=== PATIENT | male | born 1990 | race Caucasian/White ===

== ENCOUNTER 2017-05-16 02:02 | Emergency (ER) | payer OTHER ==
[~2017-05-16] VITALS: Ht 175.3 cm; Wt 91.0 kg
[~2017-05-16 02:02] MED LIST: ABIL5TAB6 PO; LISI-363 PO
[2017-05-16 02:05] VITALS: BP 165/93; PULSE 99; RESP 16; TEMP 98.7; O2SAT 97
[2017-05-16] MEDS ORDERED: ARIP1TAB5 PO (02:19)
[2017-05-16] MEDS ORDERED: LISI-515 PO (02:19)
[2017-05-16 02:25] LABS: AUTOMATED NEUTROPHIL # 4.9 TH/MM3 (1.8-7.7); BASOPHIL % 0.7 % (0.0-2.0); EOSINOPHIL # 0.1 TH/MM3 (0-0.4); HEMATOCRIT 40.2 % (39.0-51.0); HEMO FLAGS DIFF FINAL; LYMPH % 21.5 % (9.0-44.0); LYMPHOCYTE # 1.6 TH/MM3 (1.0-4.8); MEAN CELL VOLUME 88.1 FL (80.0-100.0); MEAN CORPUSCULAR HEMOGLOBIN 30.8 PG (27.0-34.0); MONO % 9.9 % (0.0-8.0); NEUT % 65.9 % (16.0-70.0); PLATELET COUNT 210 TH/MM3 (150-450); RED BLOOD COUNT 4.56 MIL/MM3 (4.50-5.90); RED CELL DISTRIBUTION WIDTH 13.3 % (11.6-17.2); WHITE BLOOD COUNT 7.4 TH/MM3 (4.0-11.0)
[2017-05-16 02:42] LABS: ALT (GPT) 42 U/L (12-78); ANION GAP 9 MEQ/L (5-15); AST (GOT) 28 U/L (15-37); BICARBONATE 29.4 MEQ/L (21.0-32.0); BLOOD UREA NITROGEN 12 MG/DL (7-18); CHLORIDE 102 MEQ/L (98-107); GLOMERULAR FILTRATION RATE 102 ML/MIN (>89); SODIUM (NA) 140 MEQ/L (136-145)
[2017-05-16 02:43] LABS: BLOOD, URINE NEG (NEG); COMMENT (UR) CULT NOT INDICATED; CULTURE IF INDICATED CULT NOT INDICATED; GLUCOSE,URINE NEG (NEG); KETONE, URINE NEG (NEG); MUCUS URINE FEW /lpf (OCC); NITRITE,URINE NEG (NEG); PH, URINE 5.5 (5.0-8.5); URINE COLOR YELLOW (YELLW/STRAW)
[2017-05-16 02:44] LABS: ACETAMINOPHEN LESS THAN 2.0 MCG/ML (10.0-30.0); ALKALINE PHOSPHATASE 78 U/L (45-117); TOTAL BILIRUBIN ADULT 0.6 MG/DL (0.2-1.0)
--- NOTE | 2017-05-16 02:59 | PD ---
HPI Chief Complaint: Psychiatric Symptoms Time Seen by Provider: 02:15 Travel History International Travel<30 days: No Contact w/Intl Traveler<30days: No Traveled to known affect area: No History of Present Illness HPI Patient is 27-year-old male brought into the emergency Department under Muse act due to suicidal ideations. Patient states that he is addicted to heroin and is tired of living this life. He reports family stressors because of his addiction. He has been in rehabilitation multiple times. He denies any visual or auditory hallucinations. He reports a dull headache, but denies any visual changes, nausea, chest pain, shortness of breath. Patient flagged down a motorcycle police, and was subsequently Muse acted after he reported the suicidal ideations. [facility] Past Medical History Bipolar Disorder: Yes Anxiety: Yes Depression: Yes Hypertension: Yes Tetanus Vaccination: < 5 Years Influenza Vaccination: Yes Past Surgical History Surgical History: No Previous Surgery Social History Alcohol Use: Yes (VODKA) Tobacco Use: Yes Substance Use: Yes (IV HEROIN DAILY) Allergies-Medications (Allergen,Severity, Reaction): Coded Allergies: Haldol (Verified Allergy, Intermediate, Hallucinations, 06/01/16) Reported Meds & Prescriptions Reported Meds & Active Scripts Active Reported Abilify (Aripiprazole) 10 Mg Tab 5 Mg PO DAILY Lisinopril 20 Mg Tab 20 Mg PO DAILY Review of Systems Except as stated in HPI: all other systems reviewed are Neg HENT: Positive: Headaches Psychiatric: Positive: Suicidal Ideations, Substance Abuse Physical Exam Narrative GENERAL: Well-developed, well-nourished, alert male. Resting comfortably in no acute distress SKIN: Warm and dry. HEAD: Atraumatic. Normocephalic. EYES: Pupils equal and round. No scleral icterus. No injection or drainage. ENT: No nasal bleeding or discharge. Mucous membranes pink and moist. NECK: Trachea midline. No JVD. CARDIOVASCULAR: Regular rate and rhythm. RESPIRATORY: No accessory muscle use. Clear to auscultation. Breath sounds equal bilaterally. GASTROINTESTINAL: Abdomen soft, non-tender, nondistended. Hepatic and splenic margins not palpable. MUSCULOSKELETAL: Extremities without clubbing, cyanosis, or edema. No obvious deformities. NEUROLOGICAL: Awake and alert. No obvious cranial nerve deficits. Motor grossly within normal limits. Five out of 5 muscle strength in the arms and legs. Normal speech. PSYCHIATRIC: Appropriate mood and affect; insight and judgment normal. Data Data Last Documented VS Vital Signs Date Time Temp Pulse Resp B/P Pulse Ox O2 Delivery O2 Flow Rate FiO2 05/16/17 02:05 98.7 99 16 165/93 97 Orders Complete Blood Count With Diff (05/16/17 02:03) Comprehensive Metabolic Panel (05/16/17 02:03) Urinalysis - C+S If Indicated (05/16/17 02:03) Psych Screen (05/16/17 02:03) Drug Screen, Random Urine (05/16/17 02:03) Alcohol (Ethanol) (05/16/17 02:03) Salicylates (Aspirin) (05/16/17 02:03) Tylenol (Acetaminophen) (05/16/17 02:03) Acetaminophen (Tylenol) (05/16/17 03:00) Labs Laboratory Tests Test 05/16/17 05/16/17 02:10 02:21 White Blood Count 7.4 TH/MM3 Red Blood Count 4.56 MIL/MM3 Hemoglobin 14.1 GM/DL Hematocrit 40.2 % Mean Corpuscular Volume 88.1 FL Mean Corpuscular Hemoglobin 30.8 PG Mean Corpuscular Hemoglobin 35.0 % Concent Red Cell Distribution Width 13.3 % Platelet Count 210 TH/MM3 Mean Platelet Volume 8.9 FL Neutrophils (%) (Auto) 65.9 % Lymphocytes (%) (Auto) 21.5 % Monocytes (%) (Auto) 9.9 % Eosinophils (%) (Auto) 2.0 % Basophils (%) (Auto) 0.7 % Neutrophils # (Auto) 4.9 TH/MM3 Lymphocytes # (Auto) 1.6 TH/MM3 Monocytes # (Auto) 0.7 TH/MM3 Eosinophils # (Auto) 0.1 TH/MM3 Basophils # (Auto) 0.0 TH/MM3 CBC Comment DIFF FINAL Differential Comment Sodium Level 140 MEQ/L Potassium Level 4.0 MEQ/L Chloride Level 102 MEQ/L Carbon Dioxide Level 29.4 MEQ/L Anion Gap 9 MEQ/L Blood Urea Nitrogen 12 MG/DL Creatinine 0.91 MG/DL Estimat Glomerular Filtration 102 ML/MIN Rate Random Glucose 85 MG/DL Calcium Level 8.6 MG/DL Total Bilirubin 0.6 MG/DL Aspartate Amino Transf 28 U/L (AST/SGOT) Alanine Aminotransferase 42 U/L (ALT/SGPT) Alkaline Phosphatase 78 U/L Total Protein 8.1 GM/DL Albumin 4.3 GM/DL Salicylates Level LESS THAN 1.7 MG/DL Acetaminophen Level LESS THAN 2.0 MCG/ML Ethyl Alcohol Level 4 MG/DL Urine Color YELLOW Urine Turbidity HAZY Urine pH 5.5 Urine Specific [place] 1.025 Urine Protein TRACE mg/dL Urine Glucose (UA) NEG mg/dL Urine Ketones NEG mg/dL Urine Occult Blood NEG Urine Nitrite NEG Urine Bilirubin NEG Urine Urobilinogen 2.0 MG/DL Urine Leukocyte Esterase NEG Urine RBC 1 /hpf Urine WBC 1 /hpf Urine Amorphous Sediment RARE Urine Mucus FEW /lpf Microscopic Urinalysis Comment CULT NOT INDICATED MDM Medical Decision Making Medical Screen Exam Complete: Yes Emergency Medical Condition: Yes Interpretation(s) Vital Signs Date Time Temp Pulse Resp B/P Pulse Ox O2 Delivery O2 Flow Rate FiO2 05/16/17 02:05 98.7 99 16 165/93 97 Differential Diagnosis Mood disorder versus substance abuse versus suicidal ideations versus other Narrative Course Patient's 27-year-old male brought into the emergency Department under Muse act. Mental health screening discussed with the patient. Psychiatric screen ordered. Vital signs are stable and acetaminophen ordered for headache. CBC is unremarkable Chemistry is unremarkable Urinalysis is unremarkable Acetaminophen, salicylate, alcohol level are unremarkable Urine drug screen is pending however patient admits freely to using heroin. Patient is medically cleared for psychiatric evaluation at this time. Diagnosis Primary Impression: Medical clearance for psychiatric admission Additional Impressions: Suicidal ideations Heroin addiction Condition: Stable Livia Osorio [employer] HELPER May 16, 2017 02:59
[2017-05-16] MEDS ORDERED: ACETAMINOPHEN 325 MG TAB PO ONE (03:00)
[2017-05-16 04:57] LABS: AMPHETAMINE, URINE NEG (NEG); BARBITURATES, URINE NEG (NEG); COCAINE, URINE NEG (NEG)
[2017-05-16 06:05] VITALS: BP 133/79; PULSE 68; RESP 18; O2SAT 98
[2017-05-16 10:00] VITALS: BP 143/78; PULSE 83; RESP 18; TEMP 98; O2SAT 95
--- NOTE | 2017-05-16 14:24 | PD ---
History of Present Illness Chief Complaint: Psychiatric Symptoms Time Seen by Provider: 14:20 Travel History International Travel<30 Days: No Contact w/Intl Traveler<30days: No Known affected area: No Legal Status Legal Status: Muse Act Muse Act Signed By: Garrett Muse Act Comment: Signed by [facility] Officer Adriane Gallo #[id number]. History of Present Illness: Patient has a multiyear history of heroin and opiate abuse, approximately 10 years in duration. He is now wanting help for his drug abuse problems. He would like to go to [facility] although he has not been there in the past. He is not reporting suicidal or homicidal ideation, plan or intent but is stating that he wants to stop using drugs. Apparently he is tired of worrying his parents. As the patient's main problem is drug abuse, this physician agrees the patient should be treated at [facility]. His complaint of suicidality was made previously in order to get him help. However this facility is not license for detox and rehabilitation. PFSH Past Medical History Bipolar Disorder: Yes Anxiety: Yes Depression: Yes Hypertension: Yes Tetanus Vaccination: < 5 Years Influenza Vaccination: Yes Past Surgical History Surgical History: No Previous Surgery Psychiatric History Psychiatric History Hx Psychiatric Treatment: Denied History of Inpatient Treatment: No Guns or firearms in home: No Social History Hx Alcohol Use: Yes (VODKA) Hx Tobacco Use: Yes Hx Substance Use: Yes (IV HEROIN DAILY) Allergies-Medications (Allergen,Severity, Reaction): Coded Allergies: Haldol (Verified Allergy, Intermediate, Hallucinations, 06/01/16) Reported Meds & Prescriptions Reported Meds & Active Scripts Active Reported Abilify (Aripiprazole) 10 Mg Tab 5 Mg PO DAILY Lisinopril 20 Mg Tab 20 Mg PO DAILY Review of Systems Except as stated in HPI: all other systems reviewed are Neg Exam Alert: Yes [place]: Person, Place, Date, Situation Mood: Calm Affect: Appropriate Speech: Clear, Logical Eye Contact: Normal Memory Intact: Immediate, Recent, Remote Insight/Judgement Adequate MDM Medical Decision Making Medical Record Reviewed: Yes Assessment/Plan This is a 27-year-old male with a approximate 10 year history of opiate abuse and addiction. Despite the patient's threats of suicide, it appears his primary problem is opiate addiction and he is wanting to get help with this. This physician does not feel he meets Muse act criteria due to his drug problems. This facility is also not licensed to treat patients with primary addiction problems. Therefore the patient will be discharged to [facility] for follow up. This physician understands the patient may act out and actually hurt himself, but it is counter therapeutic to admit him for this manipulative behavior. Orders Complete Blood Count With Diff (05/16/17 02:03) Comprehensive Metabolic Panel (05/16/17 02:03) Urinalysis - C+S If Indicated (05/16/17 02:03) Psych Screen (05/16/17 02:03) Drug Screen, Random Urine (05/16/17 02:03) Alcohol (Ethanol) (05/16/17 02:03) Salicylates (Aspirin) (05/16/17 02:03) Tylenol (Acetaminophen) (05/16/17 02:03) Acetaminophen (Tylenol) (05/16/17 03:00) Diet Regular Basic (05/16/17 Breakfast) Results Vital Signs Date Time Temp Pulse Resp B/P Pulse Ox O2 Delivery O2 Flow Rate FiO2 05/16/17 10:00 98.0 83 18 143/78 95 Room Air 05/16/17 06:05 68 18 133/79 98 Room Air 05/16/17 02:05 98.7 99 16 165/93 97 Laboratory Tests Test 05/16/17 05/16/17 02:10 02:21 White Blood Count 7.4 Red Blood Count 4.56 Hemoglobin 14.1 Hematocrit 40.2 Mean Corpuscular Volume 88.1 Mean Corpuscular Hemoglobin 30.8 Mean Corpuscular Hemoglobin 35.0 Concent Red Cell Distribution Width 13.3 Platelet Count 210 Mean Platelet Volume 8.9 Neutrophils (%) (Auto) 65.9 Lymphocytes (%) (Auto) 21.5 Monocytes (%) (Auto) 9.9 Eosinophils (%) (Auto) 2.0 Basophils (%) (Auto) 0.7 Neutrophils # (Auto) 4.9 Lymphocytes # (Auto) 1.6 Monocytes # (Auto) 0.7 Eosinophils # (Auto) 0.1 Basophils # (Auto) 0.0 CBC Comment DIFF FINAL Differential Comment Sodium Level 140 Potassium Level 4.0 Chloride Level 102 Carbon Dioxide Level 29.4 Anion Gap 9 Blood Urea Nitrogen 12 Creatinine 0.91 Estimat Glomerular Filtration 102 Rate Random Glucose 85 Calcium Level 8.6 Total Bilirubin 0.6 Aspartate Amino Transf 28 (AST/SGOT) Alanine Aminotransferase 42 (ALT/SGPT) Alkaline Phosphatase 78 Total Protein 8.1 Albumin 4.3 Salicylates Level LESS THAN 1.7 Acetaminophen Level LESS THAN 2.0 Ethyl Alcohol Level 4 Urine Color YELLOW Urine Turbidity HAZY Urine pH 5.5 Urine Specific [place] 1.025 Urine Protein TRACE Urine Glucose (UA) NEG Urine Ketones NEG Urine Occult Blood NEG Urine Nitrite NEG Urine Bilirubin NEG Urine Urobilinogen 2.0 Urine Leukocyte Esterase NEG Urine RBC 1 Urine WBC 1 Urine Amorphous Sediment RARE Urine Mucus FEW Microscopic Urinalysis Comment CULT NOT INDICATED Urine Opiates Screen POS Urine Barbiturates Screen NEG Urine Amphetamines Screen NEG Urine Benzodiazepines Screen NEG Urine Cocaine Screen NEG Urine Cannabinoids Screen POS Diagnosis Primary Impression: Adjustment disorder with mixed disturbance of emotions and conduct Additional Impression: Opiate addiction Condition: Stable Problem Qualifiers Saad Gutierrez MD May 16, 2017 14:24
== END 2017-05-16 15:15 | disposition home or self-care (01) ==
LOC: NEPD 02:02
DX: R45.851 Suicidal ideations (principal); F11.20 Opioid dependence, uncomplicated; F43.25 Adjustment disorder with mixed disturbance of emotions and conduct; F41.8 Other specified anxiety disorders; F31.9 Bipolar disorder, unspecified; I10 Essential (primary) hypertension; Z72.0 Tobacco use
CPT/HCPCS: 80053; 80307; 81001; 85025; 99283

== ENCOUNTER 2017-10-07 09:40 | Emergency (ER) | payer SELFPAY ==
[~2017-10-07] VITALS: Ht 175.3 cm; Wt 92.0 kg
[~2017-10-07 09:40] MED LIST changes: +ABIL10TA8 PO; -ABIL5TAB6 PO; -LISI-363 PO; +LISI-515 PO
[2017-10-07 09:42] VITALS: BP 140/75; PULSE 67; RESP 14; TEMP 97.9; O2SAT 98
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
== END 2017-10-07 11:45 | disposition home or self-care (01) ==
LOC: NEPD 09:40
DX: H11.32 Conjunctival hemorrhage, left eye (principal); F31.9 Bipolar disorder, unspecified; F41.9 Anxiety disorder, unspecified; I10 Essential (primary) hypertension; F17.210 Nicotine dependence, cigarettes, uncomplicated; Z79.899 Other long term (current) drug therapy; Z88.8 Allergy status to other drugs, medicaments and biological substances
CPT/HCPCS: 99283

== ENCOUNTER 2017-11-07 17:45 | Emergency (ER) | payer SELFPAY ==
[2017-11-07 17:13] VITALS: O2SAT 0
[~2017-11-07 17:45] MED LIST changes: -ABIL10TA8 PO
[2017-11-07] MEDS ORDERED: DEXTROSE 50% IN WATER 50 ML SYRINGE IV ONE (17:46)
[2017-11-07] MEDS ORDERED: SODIUM BICARBONATE 8.4% INJ 50 MEQ/50 ML SYR IV ONE (17:46)
[2017-11-07] MEDS ORDERED: EPINEPHrine HCL (1:10,000) 1 MG/10 ML SYRINGE IV ONE (17:46)
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
== END 2017-11-07 18:22 | disposition expired ==
LOC: NEPC 17:45 → NEPI 18:22
DX: I46.9 Cardiac arrest, cause unspecified (principal); T50.901A Poisoning by unspecified drugs, medicaments and biological substances, accidental (unintentional), initial encounter; F31.9 Bipolar disorder, unspecified; F41.9 Anxiety disorder, unspecified; I10 Essential (primary) hypertension; F17.210 Nicotine dependence, cigarettes, uncomplicated; Z79.899 Other long term (current) drug therapy; Z88.8 Allergy status to other drugs, medicaments and biological substances
CPT/HCPCS: 31500; 92950; 99285; J0171